=== PATIENT | female | born 1960 ===

== ENCOUNTER 2024-01-06 15:44 | Outpatient (AMB) | payer BC, SELFPAY ==
--- NOTE | 2024-01-06 15:46 | MHC.PC.OV ---
Vital Signs 01/06/24 15:55 Height 5 ft 4 in Weight 157 lb BMI 26.9 BP 130/72 Blood Pressure Location Lt brachial Position Sitting Pulse 65 Pulse Source Pulse Oximeter Temp 98.1 F Temp Source Oral Pulse Oximetry (%) 91 L Oxygen Delivery Method Room Air Intake Visit Reasons: Est care Intake Note: patient here for new patient visit. Warehouse Person Required: No Accompanied by: Spouse Is last menstrual period known: No Post menopausal: No Patient : No Allergies sulpha Adverse Reaction (Severe, Uncoded 01/06/24 15:50) Anaphylaxis Medication List - Last Reconciled 01/06/24 by Veronica Cross MD albuterol sulfate 90 mcg/actuation inhalation omeprazole 20 mg PO DAILY Tobacco use date assessed: 01/06/24 Dental Screening Dental Screen Date: 01/06/24 Did you have a dental visit in the last 12 months?: No Did you have a dental problem in the last 6 months where you did not have access to dental care?: No Was dental information given to patient?: Patient has dentist HPI HPI Comments History of Present Illness Details 63 year old female with a past medical history of dysphagia, GERD, post viral (norovirus) sequelae presenting for follow up Saw Dr Xiong regarding globus, dysphagia. Recommend barium swallow (scheduled), ENT consult (placed) prior to consideration of EGD. Her symptoms are much less frequent and severe on PPI therapy. Post viral RAD, telugium following norovirus. Request oral minoxidil trial. Colonoscopy 2022 Mammogram 2023 Hysterectomy 2006 Td 2020 ROS see HPI PHYSICAL EXAM: GENERAL: Alert and oriented x 3. NAD EYES: EOMI. Anicteric. HENT: Moist mucous membranes. No scleral icterus. No cervical lymphadenopathy. LUNGS: Clear to auscultation bilaterally. CARDIOVASCULAR: Regular rate and rhythm. No murmur. No JVD. ABDOMEN: Soft, non-tender +bs EXTREMITIES: No edema. Non-tender. SKIN: No rashes or lesions. Warm. NEUROLOGIC: No focal neurological deficits. CN II-XII grossly intact PSYCHIATRIC: Cooperative. Appropriate mood and affect FORMERLY [facility], [facility] Social History Housing: House Patient Tobacco Use Status: Never used Tobacco e-Cigarette/Vaping Use: Never Used Second Hand Smoke Exposure: No service: No Current occupational status: retired Current occupational exposures/hazards: No Cognitive needs: No Hearing needs: No Vision needs: Yes Questionnaire PHQ-9 Over the last 2 weeks, how often have you been bothered by any of the following problems? 1. Little interest or pleasure in doing things: not at all 2. Feeling down, depressed, or hopeless: not at all 3. Trouble falling or staying asleep, or sleeping too much: not at all 4. Feeling tired or having little energy: not at all 5. Poor appetite or overeating: not at all 6. Feeling bad about yourself - or that you are a failure or have let yourself or your family down: not at all 7. Trouble concentrating on things, such as reading the newspaper or watching television: not at all 8. Moving or speaking so slowly that other people could have noticed. Or the opposite - being so fidgety or restless that you have been moving around a lot more than usual: not at all 9. Thoughts that you would be better off or of hurting yourself in some way: not at all Total score: 0 Depression Screening Interpretation: Negative Depression Screening Done: Yes 42771 - PHQ-9 Billing: Yes Source: Developed by Drs. Boris Dumas, Brenna Barnard, Jeffrey Real and colleagues, with an educational maite from [employer]. Thrive Questionnaire Date Thrive assessed: 01/06/24 I am a: Patient What is your living situation today?: I have a place to live, but I am worried about losing it in the future THRIVE Score: 1 AUDIT C Alcohol Use Questionnaire (AUDIT-C) 1. How often do you have a drink containing alcohol?: Never Total Score: 0 MARTHA-7 AMB Questionnaire MARTHA-7 Date MARTHA - 7 assessed: 01/06/24 Feeling nervous, anxious, or on edge: 0 = Not at all Not being able to stop or control worryin = Not at all Worrying too much about different things: 0 = Not at all Trouble relaxin = Not at all Being so restless that it is hard to sit still: 0 = Not at all Becoming easily annoyed or irritable: 0 = Not at all Feeling afraid as if something awful might happen: 0 = Not at all Total MARTHA-7 score (0-4 normal; 5-9 mild; 10-14 moderate; 15-21 severe): 0 Source: Developed by Drs. Boris Dumas, Brenna Barnard, Jeffrey Real and colleagues, with an educational maite from [employer]. MARTHA-7 Assessment Billing MARTHA-7 Assessment Tool: MARTHA-7 Assessment 29052 ACT Questionnaire In the past 4 weeks, how much of the time did your asthma keep you from getting as much done at work, school or at home?: A little of the time During the past 4 weeks, how often have you had shortness of breath?: Not at all During the past 4 weeks, how often did your asthma symptoms wake you up at night or earlier than usual in the morning?: Not at all During the past 4 weeks, how often have you had to use your rescue inhaler or nebulizer medication?: More than 3 times per day (once a day) How would you rate your asthma control during the past 4 weeks?: Somewhat controlled Score: 18 Physical exam (Primary Care) Vital Signs: Last Vital Signs Temp 98.1 F 01/06/24 15:55 Pulse 65 01/06/24 15:55 BP 130/72 01/06/24 15:55 Pulse Ox 91 L 01/06/24 15:55 Oxygen Delivery Method Room Air 01/06/24 15:55 BMI result Body Mass Index 26.9 Tobacco/Smoking Status: Tobacco use Status Tobacco use date assessed 01/06/24 01/06/24 16:00 Patient Tobacco Use Status Never used Tobacco 01/06/24 16:00 e-Cigarette/Vaping Use Never Used 01/06/24 16:00 PHQ-9: PHQ-9 Score PHQ-9: Total score 0 01/08/24 09:55 Depression Screening Interpretation: Negative Thrive Assessment: Date of Thrive Assessment Date Thrive assessed 01/06/24 01/06/24 16:02 Assessment and Plan Assessment & Plan (1) Chronic cough: Code(s): R05.3 - Chronic cough Plan: Improved but not resolved with omeprazole (2) Bilateral hip pain: Code(s): M25.551 - Pain in right hip; M25.552 - Pain in left hip (3) Dysphagia: Code(s): R13.10 - Dysphagia, unspecified Qualifiers: Dysphagia type: unspecified Qualified Code(s): R13.10 - Dysphagia, unspecified (4) Globus sensation: Code(s): R09.A2 - Foreign body sensation, throat Plan: Referral to ENT. Follow up after MBS, ENT. continue once daily PPI Orders: Referrals Ear/Nose/Throat Referral J45.909 - Unspecified asthma, uncomplicated, R05.3 - Chronic cough, R09.A2 - Foreign body sensation, throat, R13.10 - Dysphagia, unspecified Orthopedics Referral J45.909 - Unspecified asthma, uncomplicated, M25.551 - Pain in right hip, M25.552 - Pain in left hip, R05.3 - Chronic cough Medications: New omeprazole 20 mg PO DAILY 90 caps 3RF 90 days albuterol sulfate 90 mcg/actuation 2 puffs inhalation Q4H 8.5 grams 3RF minoxidil 2.5 mg PO DAILY 90 tabs 3RF 90 days Coding Level of Care Code Est Pt Level 5 (67786) Diagnoses Chronic cough R05.3 Bilateral hip pain M25.551; M25.552 Dysphagia, unspecified type R13.10 Dysphagia type: unspecified Globus sensation R09.A2 Additional Codes MARTHA-7 Assessment Billing - MARTHA-7 Assessment Tool: MARTHA-7 Assessment 57356 ([id number]) Time Spent (min) 55
[2024-01-06 15:55] VITALS: BP 130/72; PULSE 65; TEMP 36.7; O2SAT 91; BMI 26.9
== END 2024-01-06 16:56 | disposition home or self-care (01) ==
PROVIDERS: PCP Internal Medicine; Visit Provider Internal Medicine
DX: R05.3 Chronic cough (principal); M25.551 Pain in right hip; M25.552 Pain in left hip; R13.10 Dysphagia, unspecified; R09.A2 Foreign body sensation, throat
CPT/HCPCS: 99215

== ENCOUNTER 2024-08-24 15:32 | Outpatient (AMB) | payer BC, SELFPAY ==
--- OUTSIDE RECORDS SUMMARY | 2024-08-24 15:34 | XMS_ITS | Continuity of Care Document ---
Author Organization [place] - [facility], [facility] [address] floor Address [address] [place] [address] Care Team Providers Care Alarm Security Or Surveillance Monitor Name Role Phone ARMIDA MENDOZA Primary Care Provider Assessment Encounter Date Assessment Date Assessment LastModified by Organization Details LastModified Time 08/06/2024 08/06/2024 I am seeing the patient today under the supervision of Dr. Velasquez who was available but who did not see the patient. The patient presents today for follow-up. Has known trochanteric bursitis of the Bilateral hip. Has had previous cortisone injection which gave relief until recently. Has had no recent trauma, no fevers or chills, no neurovascular changes. Presents today for further evaluation. PAST MEDICAL/SURGICAL HISTORY Past medical history is reviewed per intake sheet. PHYSICAL FINDINGS On physical examination, the patient is well appearing and in no apparent distress, alert and oriented x3. Gait is symmetric. Examination of the hip reveals the skin to be intact, normal musculature, continued tenderness on palpation over the greater trochanter. No pain with range of motion of the hip, has full range of motion, no crepitus noted with range of motion. No significant pain with straight leg raise. ASSESSMENT Symptomatic trochanteric bursitis of the Bilateral hip. PLAN I explained the nature of the diagnosis with the patient and its treatment options both conservative and surgical.Conserv ative measures were discussed at length including but not limited to physical therapy, bracing, anti-inflammator ies and injection therapies. Please see procedure note for more information about the injection performed today. The patient will follow up in 3 months. The patient understands and agrees with the plan. They know to call if they have any further questions or concerns regarding their symptoms, or to follow up sooner if needed. [email or web address] Not available 08/06/2024 15:04:26 Plan of Treatment Reminders Order Date Submit Date Provider Last Modified By Organization Details Last Modified Time Details Appointments RECHECK 15 2024 03:15P M Jaskaran Huber PA-C Not available Not available Not available Lab None recorded . Referral None recorded . Procedures None recorded . Surgeries None recorded . Imaging None recorded . Medication Orders None recorded . Patient TargetsNo targets recorded. Patient InstructionsNo instructions recorded. Reason for Referral None Reported. Procedures Surgical History Date Name Laterality Status Provider Name and Address Organization Details Recorded Time 5 JZHip Inj completed Jaskaran Huber PA-C [address], [place], [address], [facility] 08/06/2024 15:04:16 4 JZHip Inj completed Jaskaran Huber PA-C [address], [place], [address], [facility] 03/15/2024 18:08:04 4 Hip Kenalog 1cc Injection, L/R completed Jaskaran Huber PA-C [address], [place], [address], [facility] 12/08/2023 16:00:39 Imaging Results None recorded. Procedure Notes None recorded. Medical Equipment None Reported. Allergies Allergen ID Allergen Name Allergen Category Reaction Reaction Severity Criticality Documentation Date Start Date Code Code System Note Provider Name and Address Organization Details Recorded Time 471348 Substance with sulfonami de structure and antibacte rial mechanism of action (substanc e) medicatio n Not available Not available Not available 12/08/2023 18169 8003 SNOMED KAYLIA L'HEUREUX [facility] 4 15:58:04 Medications Name Sig Start Date Stop Date Status Note LastModified by Organization Details LastModified Time minoxidil 2.5 mg tablet TAKE ONE TABLET BY MOUTH EVERY DAY active Not Available Not Available No t Available omeprazole 10 mg capsule,jesse yed release Take 2 capsules every day by oral route. active Not Available Not Available No t Available omeprazole 20 mg capsule,jesse yed release TAKE ONE CAPSULE BY MOUTH EVERY DAY active Not Available Not Available No t Available albuterol sulfate HFA 90 mcg/actuatio n aerosol inhaler INHALE TWO PUFFS BY MOUTH EVERY 4 HOURS active Not Available Not Available No t Available ibuprofen active Not Available Not Martina ilable Not Available Proair Digihaler 90 mcg/actuatio n aerosol powder breath act, sensor Inhale 2 puffs every 4 hours by inhalation route. active Not Available Not Available No t Available Vitals Date Recorded Body height Body mass index (BMI) Body weight Provider Name and Address Organization Details Last Updated DateTime 08/06/2024 162.56 cm 27.5 kg/m2 16563.78 g BeiZ L'HEUREUX [facility] 08/06/2024 14:35:05 Social History Question Answer Notes LastModified by Organizat ion Details LastModified Time Tobacco Smoking Status Never Smoker [employer] L'HEUREUX [facility] 12/08/2023 15:58:48 What Is Your Level Of Alcohol Consumption? None Information not available 12/08/2023 What Is Your Relationship Status? Information not available 12/08/2023 Do You Use Any Illicit Or Recreational Drugs? No Information not available 12/08/2023 Do You Or Have You Ever Used Any Other Forms Of Tobacco Or Nicotine? No Information not available 12/08/2023 Sex: Unknown Functional Status None recorded. Mental Status None recorded. Family History Nothing Reported. Medical History Condition Response Allergies/Hayfever N Coronary Artery Disease N Anxiety/Depression N Breathing or lung disorders N Emphysema N Nerve Disorders N Thyroid Problems N COPD N Pacemaker N Anemia N Kidney/Bladder Problems N Vascular Disease N Heart Trouble N Heart Attack ([place]) N Gastrointestinal Disease N Cholesterol N Diabetes N Autoimmune disease N Bleeding Disorder N Orthotics N Arthritis Y Seizures/Epilepsy N Blood Clot N AIDS/HIV N Congestive Heart Failure (CHF) N Acid Reflux (GERD) N Cancer N Stroke N Asthma N Circulation Problems N Peripheral Vascular Disease N Sleep Apnea N Hepatitis N Heart Disease N Rheumatoid Arthritis N Arrhythmia N Pulmonary Embolism N Headaches N Fibromyalgia N Hypertension N Osteoporosis N Gynecological HistoryNo gynecological history recorded. Obstetrics History GPAL:G 0 P 0 0 0 0 Past Encounters Encounter ID Performer Location Encounter Start Date Encounter Closed Date Diagnosis/Indication Diagnosis SNOMED-CT Code Diagnosis ICD10 Code Diagnosis Note [id number] [facility]ck[facility] [address] [place], [place] [address] 08/06/2024 14:05:25 08/20/2024 07:43:11 Trochanteric bursitis of right hip [id number] 28766 M70.61 Trochanter ic bursitis of left hip 3963379392 02005 M70.62 Health Concerns Section Related Observation LastModified by Organization Detai ls LastModified Time None Recorded Concern Status LastModified by Organization Details LastModified Time None Recorded Payers Encounter Date Sequence Insurance Name Policy Number Policy Hurt Covered Member ID Hurt Member ID Guarantor Name 08/06/2024 1 MARGARITO: [facility] [id number] Mayra Epps [id number] OBGyn Episode No OBEpisode recorded.
--- OUTSIDE RECORDS SUMMARY | 2024-08-24 15:34 | XMS_ITS | Data Portability ---
Author Organization [place] - [facility], [facility] Address [address] [place] [address] Care Team Providers Care Line Dancer Name Role Phone REJI ARMIDA Primary Care Provider Assessment Encounter Date Assessment Date Assessment LastModified by Organization Details LastModified Time 12/08/2023 12/08/2023 I am seeing the patient today under the supervision of Dr. Carver who was available but who did not [...] physical therapy, bracing, anti-inflammator ies and injection therapies.This procedure was performed on the Bilateral hip. Prior to giving injection, explained the risk and benefits and patient demostrated good understanding. Under sterile technique, the greater trochanter was palpated with the needle and retracted slightly until the injection of 4 cc Marcaine 0.25%. , 40 mgs Kenalog flowed freely into the trochanteric bursa. Tolerated this well. Post injection precautions reviewed. Instructed the patient to monitor the effects and follow-up in 3 months. [email or web address] Not available 12/08/2023 16:01:38 03/15/2024 03/15/2024 I am seeing the patient today under the supervision of Dr. Arreola who was available but who did not see the patient. The patient presents today for follow-up. Has known trochanteric bursitis of the Right hip. Has had previous cortisone injection which [...] raise. ASSESSMENT Symptomatic trochanteric bursitis of the Right hip. PLAN I explained the nature of [...] or to follow up sooner if needed. [email or web address] Not available 03/15/2024 18:08:18 08/06/2024 08/06/2024 I am seeing the patient [...] or to follow up sooner if needed. [email or web address] Not available 08/06/2024 15:04:26 Plan of Treatment [...] JZHip Inj completed Jaskaran Huber PA-C [address] [facility], [place], [address], [facility] 08/06/2024 15:04:16 4 JZHip Inj completed Jaskaran Huber PA-C [address], [place], [address], [facility] 03/15/2024 18:08:04 4 Hip Kenalog 1cc Injection, L/R completed Jaskaran Huber PA-C [address], [place], [address], [facility] 12/08/2023 16:00:39 Imaging Results None recorded. Procedure Notes None recorded. Medical Equipment None Reported. Allergies Allergen ID Allergen Name Allergen Category Reaction Reaction Severity Criticality Documentation Date Start Date Code Code System Note Provider Name and Address Organization Details Recorded Time 330495 Substance with sulfonami de structure and antibacte rial mechanism of action (substanc e) medicatio n Not available Not available Not available 12/08/2023 71881 8003 SNOMED KAYLIA L'HEUREUX [facility] 15:58:04 Medications Name Sig Start Date Stop [...] and Address Organization Details Last Updated DateTime 12/08/2023 162.56 cm 27.5 kg/m2 84333.78 g KAYLIA L'HEUREUX [facility] 12/08/2023 15:57:54 Date Recorded Body height Body mass index (BMI) Body weight Provider Name and Address Organization Details Last Updated DateTime 03/15/2024 162.56 cm 27.5 kg/m2 33612.78 g Kirsty Shirley [facility] 03/15/2024 15:48:43 Date Recorded Body height Body mass index (BMI) Body weight Provider Name and Address Organization Details Last Updated DateTime 08/06/2024 162.56 cm 27.5 kg/m2 38614.78 g KAYLIA L'HEUREUX [facility] 08/06/2024 14:35:05 Social History Question Answer Notes LastModified by Organizat ion Details LastModified Time Tobacco Smoking Status Never Smoker VEL chaudhary [place] - [facility] 12/08/2023 15:58:48 What Is Your Level Of [...] Response Allergies/Hayfever N Coronary Artery Disease N Breathing or lung disorders N Anxiety/Depression N Emphysema N Nerve Disorders N Thyroid Problems N COPD N Pacemaker N Kidney/Bladder Problems N Anemia N Vascular Disease N Heart Trouble N Heart Attack ([place]) N Gastrointestinal Disease N Cholesterol N Diabetes N Autoimmune disease N Bleeding Disorder N Orthotics N Seizures/Epilepsy N Arthritis Y Blood Clot N AIDS/HIV N Congestive Heart Failure (CHF) N Acid Reflux (GERD) N Cancer N Stroke N Asthma N Circulation Problems N Peripheral Vascular Disease N Sleep Apnea N Hepatitis N Heart Disease N Rheumatoid Arthritis N Pulmonary Embolism N Arrhythmia N Headaches N Fibromyalgia N Hypertension N Osteoporosis N Gynecological HistoryNo gynecological history recorded. Obstetrics History GPAL:G 0 P 0 0 0 0 Past Encounters Encounter ID Performer Location Encounter Start Date Encounter Closed Date Diagnosis/Indication Diagnosis SNOMED-CT Code Diagnosis ICD10 Code Diagnosis Note [id number] [facility] Mckenzie [address] [place] [address] 12/08/2023 15:49:18 01/09/2024 10:29:56 Bilateral trochanteric bursitis [id number] M70.61 M70.62 [id number] JASMIN Mckenzie [address] [place] [address] 03/15/2024 15:21:58 04/09/2024 13:01:59 Trochanteric bursitis of right hip [id number] 71183 M70.61 [id number] JASMIN Mckenzie [address] [place] [address] 08/06/2024 14:05:25 08/20/2024 07:43:11 Trochanteric bursitis of right hip [id number] 35364 M70.61 Trochanter ic bursitis of left hip 0917969545 34480 M70.62 Health Concerns Section Related Observation LastModified by Organization Detai ls LastModified Time None Recorded Concern Status LastModified by Organization Details LastModified Time None Recorded Advance Directives Directive None Recorded Payers Encounter Date Sequence Insurance Name Policy Number Policy Hurt Covered Member ID Hurt Member ID Guarantor Name 12/08/2023 1 [facility] [id number] Mayra Berrynte [id number] 03/15/2024 1 [facility] [id number] Mayra Dyeadante [id number] 08/06/2024 1 [place] [facility] [place] [id number] Mayra Dyeadante [id number] Mayra Dyeadante OBGyn Episode No OBEpisode recorded.
--- OUTSIDE RECORDS SUMMARY | 2024-08-24 15:34 | XMS_ITS | Data Portability ---
Author Organization [place] - [facility], Allergy Address [address] [address] Care Team Providers Care Machine Operator Slitter Technician Name Role Phone ARMIDA TRAVIS Primary Care Provider PREMA GARCIA Referring Provider Assessment Encounter Date Assessment Date Assessment LastModified by Organization Details LastModified Time 05/08/2024 05/08/2024 Chronic cough evaluation with fiberoptic laryngoscopy was benign. No lesions, nodules or polyps to better explain her dry nonproductive cough. From her description of triggering events, reflux or bronchospasm sound like they play a significant role in her progression to coughing episodes. Continue work with her starchmaker may be helpful to identify and manage her symptoms [email or web address] Not available 05/08/2024 10:45:19 Plan of Treatment Reminders Order Date Submit Date Provider Last Modified By Organization Details Last Modified Time Details Appointments None record ed. Lab None record ed. Referral None record ed. Procedures None record ed. Surgeries None record ed. Imaging None record ed. Medication Orders None record ed. Patient TargetsNo targets recorded. Patient InstructionsNo instructions recorded. Reason for Referral None Reported. Problems Name Problem SNOMED Code Status Onset Date Resolution Date Notes Provider Name and Address Organization Details Recorded Time Chronic cough 82762890 Active 024 KAL LONG MD [address] [place] [address], [phone] , [facility] 05/08/2024 08:51:38 Problem Notes None recorded. Procedures Surgical History Date Name Laterality Status Provider Name and Address Organization Details Recorded Time 05/08/2024 FOL_DP completed KAL LONG MD [address] [place] [address],[address], [address], [facility] 05/08/2024 08:51:32 Imaging Results None recorded. Procedure Notes None recorded. Medical Equipment None Reported. Medications Name Sig Start Date Stop Date [...] and Address Organization Details Last Updated DateTime 05/08/2024 163.83 cm 24.8 kg/m2 17163.08 g Misty Beverly [place] - [facility] 05/08/2024 10:24:57 Social History None recorded. Functional Status None recorded. Mental Status None recorded. Family History Nothing Reported. Medical History No medical history recorded. Gynecological HistoryNo gynecological history recorded. Obstetrics History GPAL:G 0 P 0 0 0 0 Past Encounters Encounter ID Performer Location Encounter Start Date Encounter Closed Date Diagnosis/Indication Diagnosis SNOMED-CT Code Diagnosis ICD10 Code Diagnosis Note [id number] KAL LONG MD [facility] [address] [address] 05/08/2024 10:01:20 05/08/2024 10:45:04 Chronic cough 38708473 R05.3 Health Concerns Section Related Observation LastModified by Organization Detai ls LastModified Time None Recorded Concern Status LastModified by Organization Details LastModified Time None Recorded Advance Directives Directive None Recorded Payers Encounter Date Sequence Insurance Name Policy Number Policy Hurt Covered Member ID Hurt Member ID Guarantor Name 05/08/2024 1 [place] [facility] (O) [id number] Mayra Murphy Supriya [id number] Mayra Epps Notes Date Note Type Note Provider Name and Address Organization Details Recorded Time 05/08/2024 text/html coughchronic for yearscough can progress into asthma, bronchospasmdry non productive coughcan be triggered with aroma/perfume/cold air, also when supineneeds to eat slow to allow food to go down working with Dr Xiong for GI eval01/25/2024 barium swallow at [facility] esophageal dysmotility, moderate reflux to the level of the maria teresa retired from [employer] in [place], now stays busy w grandchildren in KAL LONG MD [address] [place] [address], [place], [phone], [facility] - [facility] 05/08/2024 10:46:01 OBGyn Episode No OBEpisode recorded.
--- NOTE | 2024-08-24 15:38 | MHC.PC.OV ---
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 Saw Dr Xiong regarding globus, dysphagia. Recommend barium swallow (scheduled), ENT consult (placed) prior to consideration of EGD. Post viral RAD, telugium following norovirus. Continues oral minoxidil with good success. Colonoscopy 2022 Mammogram 2023 Hysterectomy 2006 Td 2020 ROS see HPI PHYSICAL EXAM: GENERAL: Alert and oriented x 3. NAD EYES: EOMI. Anicteric. HENT: Moist mucous membranes. No scleral icterus. No cervical lymphadenopathy. LUNGS: Clear to auscultation bilaterally. CARDIOVASCULAR: Regular rate and rhythm. ABDOMEN: Soft, non-tender +bs EXTREMITIES: No edema. Non-tender. SKIN: No rashes or lesions. Warm. Small blackhead on the back extricated NEUROLOGIC: No focal neurological deficits. CN II-XII grossly intact PSYCHIATRIC: Cooperative. Appropriate mood and affect [facility] Social History Housing: House Patient Tobacco Use Status: Never used Tobacco e-Cigarette/Vaping Use: Never Used Second Hand Smoke Exposure: No service: No Current occupational status: retired Current occupational exposures/hazards: No Cognitive needs: No Hearing needs: No Vision needs: Yes Questionnaire Thrive Questionnaire Date Thrive assessed: 08/17/24 I am a: Patient What is your living situation today?: I choose not to answer this question Within the past 12 months, did the food you bought not last and you didn't have the money to get more?: I choose not to answer this question Within the past 12 months, did you worry whether your food would run out before you got money to buy more?: I choose not to answer this question Do you have trouble paying for medicines?: I choose not to answer this question Do you have trouble getting transportation to medical appointments?: I choose not to answer this question Do you have trouble paying your heating and electricity bill?: I choose not to answer this question Do you have trouble taking care of your child, family member or friend?: I choose not to answer this question Do you have trouble with day-to-day activities such as bathing, preparing meals, shopping, managing finances, etc.?: I choose not to answer this question Are you currently unemployed and looking for a job?: I choose not to answer this question Are you interested in more education?: I choose not to answer this question Please select the resources that you would like help with: None Currently or been in a relationship where the following occur: I choose not to answer THRIVE Score: 0 AUDIT C Alcohol Use Questionnaire (AUDIT-C) 1. How often do you have a drink containing alcohol?: Never Total Score: 0 MARTHA-7 AMB Questionnaire MARTHA-7 Date MARTHA - 7 assessed: 01/06/24 Feeling nervous, anxious, or on edge: 0 = Not at all Not being able to stop or control worryin = Not at all Worrying too much about different things: 0 = Not at all Trouble relaxin = Not at all Being so restless that it is hard to sit still: 0 = Not at all Becoming easily annoyed or irritable: 0 = Not at all Feeling afraid as if something awful might happen: 0 = Not at all Total MARTHA-7 score (0-4 normal; 5-9 mild; 10-14 moderate; 15-21 severe): 0 Source: Developed by Drs. Boris Dumas, Brenna Barnard, Jeffrey Real and colleagues, with an educational maite from [employer]. Physical exam (Primary Care) Vital Signs: Last Vital Signs Pulse 59 08/24/24 15:41 Resp 14 08/24/24 15:41 BP 114/62 08/24/24 15:41 Pulse Ox 99 08/24/24 15:41 Oxygen Delivery Method Room Air 08/24/24 15:41 BMI result Body Mass Index 26.3 Tobacco/Smoking Status: Tobacco use Status Tobacco use date assessed 01/06/24 08/24/24 15:45 Patient Tobacco Use Status Never used Tobacco 08/24/24 15:45 e-Cigarette/Vaping Use Never Used 08/24/24 15:45 Thrive Assessment: Date of Thrive Assessment Date Thrive assessed 08/17/24 08/24/24 15:45 Currently or been in a relationship where the following occur: I choose not to answer Coding Level of Care Code Est Pt Level 4 (30763) Est Pt Prev Care 40-64y(75882) Diagnoses Physical exam Z00.00 Assessment & Plan Assessment & Plan (1) Physical exam: Code(s): Z00.00 - Encounter for general adult medical examination without abnormal findings Category: Medical Plan: 64 year old female presenting for physical exam. Past medical, surgical, social and family history reviewed. Chart updated. Orders: Orders Complete Blood Count Auto Diff 08/24/24 J45.909 - Unspecified asthma, uncomplicated, M25.551 - Pain in right hip, M25.552 - Pain in left hip, R13.10 - Dysphagia, unspecified Comprehensive Met. Panel 08/24/24 J45.909 - Unspecified asthma, uncomplicated, M25.551 - Pain in right hip, M25.552 - Pain in left hip, R13.10 - Dysphagia, unspecified Lipid Panel 08/24/24 J45.909 - Unspecified asthma, uncomplicated, M25.551 - Pain in right hip, M25.552 - Pain in left hip, R13.10 - Dysphagia, unspecified TSH reflex Free T4 08/24/24 J45.909 - Unspecified asthma, uncomplicated, M25.551 - Pain in right hip, M25.552 - Pain in left hip, R13.10 - Dysphagia, unspecified Referrals Orthopedics Referral M25.551 - Pain in right hip, M25.552 - Pain in left hip Medications: New ondansetron 4 mg PO Q8H 90 tabs 3RF metoclopramide HCl (Reglan) 5 mg PO QIDACHS 60 tabs 0RF Refilled albuterol sulfate 90 mcg/actuation 2 puffs inhalation Q4H 8.5 grams 3RF minoxidil 2.5 mg PO DAILY 90 tabs 3RF 90 days
[2024-08-24 15:41] VITALS: BP 114/62; PULSE 59; RESP 14; O2SAT 99; BMI 26.3
== END 2024-08-24 16:51 | disposition home or self-care (01) ==
PROVIDERS: PCP Internal Medicine; Visit Provider Internal Medicine
DX: Z00.00 Encounter for general adult medical examination without abnormal findings (principal)

== ENCOUNTER 2024-08-27 09:01 | Outpatient (REF) | payer BC, SELFPAY ==
--- OUTSIDE RECORDS SUMMARY | 2024-08-27 09:05 | XMS_ITS | Data Portability ---
Author Organization [place] - [facility], Allergy Address [address] [address] Care Team Providers Care Intake Clerk Name Role Phone ARMIDA TRAVIS Primary Care [...] to coughing episodes. 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 Procedures Surgical History Date Name Laterality Status Provider Name and Address Organization Details Recorded Time 05/08/2024 FOL_DP completed KAL LONG MD [address] [place] [address],[address], [address], [facility] 05/08/2024 08:51:32 Imaging Results None recorded. [...] Updated DateTime 05/08/2024 163.83 cm 24.8 kg/m2 32743.08 g Misty Beverly [place] - [facility] 05/08/2024 10:24:57 Social History None recorded. Functional Status None recorded. Mental Status None recorded. Family History Nothing Reported. Medical History No medical history recorded. Gynecological HistoryNo gynecological history recorded. Obstetrics History GPAL:G 0 P 0 0 0 0 Past Encounters Encounter ID Performer Location Encounter Start Date Encounter Closed Date Diagnosis/Indication Diagnosis SNOMED-CT Code Diagnosis ICD10 Code Diagnosis Note [id number] KAL LONG MD [facility] [address] [address] 05/08/2024 10:01:20 05/08/2024 10:45:04 Chronic cough 44301906 R05.3 Health Concerns Section Related Observation LastModified by Organization Detai ls LastModified Time None Recorded Concern Status LastModified by Organization Details LastModified Time None Recorded Advance Directives Directive None Recorded Payers Encounter Date Sequence Insurance Name Policy Number Policy Hurt Covered Member ID Hurt Member ID Guarantor Name 05/08/2024 1 [place] [facility] (O) [id number] Mayra Murphy Supriya [id number] Mayra Epps Notes Date Note Type Note Provider Name and Address Organization Details Recorded Time 05/08/2024 text/html coughchronic for yearscough can progress into asthma, bronchospasmdry non productive coughcan be triggered with aroma/perfume/cold air, also when supineneeds to eat slow to allow food to go down working with Dr Xiong for GI eval01/25/2024 barium swallow at [facility] esophageal dysmotility, moderate reflux to the level of the maria teresa retired from [employer] in [place], now stays busy w grandchildren in KAL LONG MD [address] [place] [address], [place], [address], [facility] - [facility] 05/08/2024 10:46:01 OBGyn Episode No OBEpisode recorded.
[2024-08-27 10:54] LABS: MANUAL DIFF FLAG NO
[2024-08-27 10:56] LABS: Basophils Absolute Auto 0.1 X10*3/uL (0.0-0.2); Basophils Percent Auto 0.9 % (0-2); Eosinophils Absolute Auto 0.1 X10*3/uL (0.0-0.4); Eosinophils Percent Auto 1.9 % (0-4); Hematocrit 39.6 % (37.0-47.0); Imm Gran Abs Auto 0.01 X10*3/uL (0.00-0.03); Imm Gran Pct Auto 0.2 % (0.0-0.4); Lymphocytes Absolute Auto 2.4 X10*3/uL (1.2-4.9); Lymphocytes Percent Auto 45.4 % (20-40); Mean Corpuscular HGB Conc 32.8 g/dl (31.0-35.0); Mean Corpuscular Hemoglobin 28.6 pg (27.0-33.0); Mean Corpuscular Volume 87.2 fL (80.0-98.0); Mean Platelet Volume 9.1 fL (9.4-12.3); Monocytes Absolute Auto 0.4 X10*3/uL (0.1-1.2); Monocytes Percent Auto 7.9 % (2-11); Neutrophils Absolute Auto 2.3 x10*3/uL (2.0-8.3); Neutrophils Percent Auto 43.7 % (45-73); Platelet Count 348 X10*3/uL (160-400); Red Blood Count 4.54 X10*6/uL (4.20-5.50); Red Cell Distribution Width 13.7 % (11.0-16.0); White Blood Count 5.3 X10*3/uL (4.8-10.8)
[2024-08-27 11:25] LABS: Alanine Aminotransferase 89 U/L (0-31); Alkaline Phosphatase 72 U/L (39-117); Anion Gap 10 (12-20); Aspartate Amino Transferase 51 U/L (5-31); Bilirubin Total 0.5 mg/dL (0.0-1.0); Blood Urea Nitrogen 12 mg/dL (9-16); Calcium 9.3 mg/dL (8.4-10.2); Carbon Dioxide 27 mmol/L (22-29); Chloride 108 mmol/L (96-108); Cholesterol 157 mg/dL (<200); Estimated Glomerular Filt Rate > 60; Glucose Random 93 mg/dL (60-115); HDL Cholesterol 62 mg/dL (>40); LDL Cholesterol Calculated 82 mg/dL (<100); Potassium 4.2 mmol/L (3.3-5.1); Sodium 141 mmol/L (135-145); Total Protein 6.8 g/dL (6.5-8.0); Triglycerides 65 mg/dL (<150)
[2024-08-27 11:38] LABS: TSH reflex Free T4 1.51 uIU/mL (0.32-4.0)
== END 2024-08-27 09:02 | disposition home or self-care (01) ==
LOC: HO.WFDLDS 09:01
PROVIDERS: Visit Provider Internal Medicine
DX: M25.551 Pain in right hip (principal); M25.552 Pain in left hip; R13.10 Dysphagia, unspecified; J45.909 Unspecified asthma, uncomplicated
CPT/HCPCS: 36415; 80053; 80061; 84443; 85025